=== PATIENT | female | born 1960 | race Caucasian/White ===

== ENCOUNTER → 2016-10-20 | Outpatient (CLI) | payer OTHER ==
[~2016-10-20] MED LIST: CIPRO PO
--- NOTE | ~2016-10-20 | US6 ---
[facility] A Service of [facility] & [facility] RADIOLOGY TEXT RESULTS PATIENT: MARISA BRIONES LOCATION: SGUS : 64 UNIT #: [id number] AGE: [address]: Raven Harris MD SEX: F ORDER DR: [id number] [address] [address] [id number] O MR#: [id number] Acc #: [id number] NAME: MARISA BRIONES : 1960 SEX: F STUDY DATE/TIME: 10/20/2016 8:08 UNIT: SG ROOM: STUDY DESCRIPTION: US Abdominal Limited Attending Physician: Raven Harris M.D. Referring Physician: Raven Harris M.D. Ordering Physician: Raven Harris M.D. Primary Care Physician: Raven Harris M.D. MEDICAL IMAGING REPORT This report is preliminary unless electronic signature is present. EXAM Right quadrant abdominal ultrasound 10/20/2016 HISTORY Abnormal liver function test for 1 week. Cholecystectomy 2012. COMPARISON CT abdomen and pelvis angiography protocol 03/12/2012. FINDINGS Pancreatic tail is partially obscured by bowel gas but the visualized pancreas has a normal appearance. Liver demonstrates normal echotexture without focal suspicious abnormality. Liver size is within normal limits measuring about 17.5 cm in the sagittal plane. No free fluid is identified. Right kidney measures 9.9 cm in length without focal cortical lesion, shadowing stone or hydronephrosis. Intrahepatic IVC has an unremarkable gambino-scale appearance. Cholecystectomy changes. Common bile duct caliber is normal, 2 mm. No intrahepatic biliary ductal dilation is seen. A 2.3 x 4.1 x 4.2 cm rounded cystic lesion or fluid focus is seen medial to the liver. It is thought to correspond to a similar appearing cystic focus medial to the liver on the 03/12/2012 CT, and is favored to represent a benign finding, such as a peritoneal inclusion cyst or gastric intestinal duplication cyst, in keeping with a benign finding. IMPRESSION 1. 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 [facility] A Service of [facility] & [facility] RADIOLOGY TEXT RESULTS PATIENT: MARISA BRIONES LOCATION: SGUS : 64 UNIT #: [id number] AGE: [address]: Raven Harris MD SEX: F ORDER DR: peritoneal inclusion cyst. 2. Cholecystectomy. No abnormal biliary dilation. 3. Portions of the pancreas are obscured by bowel gas but the visualized pancreas appears normal. Dictated by... Chinyere Mclain M.D. THIS IS AN ELECTRONICALLY VERIFIED REPORT Chinyere Mclain M.D. at 10/22/2016 7:33 AM STACY/richelle TD: 10/20/2016 19:24 JOB #: [id number] MEDICAL IMAGING REPORT Page 1 of 1
== END | disposition home or self-care (01) ==
LOC: SGUS 07:55
DX: R79.89 Other specified abnormal findings of blood chemistry (principal); K76.9 Liver disease, unspecified; Z90.49 Acquired absence of other specified parts of digestive tract
CPT/HCPCS: 76705